=== PATIENT | male | born 1945 | race Two or more races ===

== ENCOUNTER 2023-04-10 06:00 | Day surgery (SDC) | payer OTHER ==
[~2023-04-10] VITALS: Ht 170.2 cm; Wt 63.5 kg
[~2023-04-10 06:00] MED LIST: LEVOTHYROXINE25 MCG PO
== END 2023-04-10 17:05 | disposition home or self-care (01) ==
LOC: CIR.AMB 06:00
PROVIDERS: ATTEND Colon & Rectal Surgery
DX: K64.2 Third degree hemorrhoids (principal); K64.8 Other hemorrhoids; K64.4 Residual hemorrhoidal skin tags; K92.2 Gastrointestinal hemorrhage, unspecified; I10 Essential (primary) hypertension; Z20.822 Contact with and (suspected) exposure to COVID-19

== ENCOUNTER 2023-05-04 20:43 | Inpatient (IN) | payer OTHER ==
[~2023-05-04] VITALS: Ht 170.2 cm; Wt 63.5 kg
[2023-05-04 22:43] LABS: CALCIUM 9.2 mg/dL (8.5-10.1); CREATININE SERUM 1.34 mg/dL (0.70-1.30); GFR 51.42; POTASSIUM 4.39 mEq/L (3.5-5.1)
[2023-05-04 22:44] LABS: INR 1.03; PROTHROMBIN TIME 10.8 SECONDS (9.0-11.5)
[2023-05-04 22:48] LABS: HEMATOCRIT 25.9 % (39.0-48.0); HEMOGLOBIN 8.6 g/dL (13-16.00); MEAN CELL VOLUME 91.7 fL (80.0-100.00); MEAN CORPUSCULAR HEMOGLOBIN 30.3 pg (27.00-32.0); MEAN CORPUSCULAR HGB CONC 33.1 g/dl (32.0-36.0); PLATELET COUNT 317 K/uL (150-450); RED BLOOD COUNT 2.83 M/uL (4.00-6.00); RED CELL DISTRIBUTION WIDTH 13.8 % (11.5-14.5)
[2023-05-04 23:13] LABS: URINE APPEARANCE Clear; URINE BILIRRUBIN Negative (NEGATIVE); URINE BLOOD Moderate; URINE COLOR Yellow; URINE GLUCOSE Negative (NEGATIVE); URINE LEUKOCYTE Negative; URINE NITRATE Negative; URINE PROTEIN Trace (NEGATIVE); URINE UROBILINOGEN 0.2 E.U./dl
[2023-05-04 23:16] LABS: URINE EPITHELIAL CELLS 1.5 uL (0.0-38.8); URINE RBC 67.5 uL (0.0-20.8)
[2023-05-06 08:18] LABS: HEMATOCRIT 24.5 % (39.0-48.0); MEAN CELL VOLUME 91.7 fL (80.0-100.00); PLATELET COUNT 315 K/uL (150-450); RED BLOOD COUNT 2.67 M/uL (4.00-6.00); RED CELL DISTRIBUTION WIDTH 13.5 % (11.5-14.5)
[2023-05-06 08:20] LABS: HEMOGLOBIN 8.3 g/dL (13-16.00)
[2023-05-06 08:40] LABS: ALBUMIN 3.2 gm/dL (3.4-5.0); CALCIUM 9.1 mg/dL (8.5-10.1); CREATININE SERUM 1.02 mg/dL (0.70-1.30); GFR 70.45; MAGNESIUM 1.9 mg/dL (1.8-2.4); PHOSPHOROUS 3.4 mg/dL (2.5-4.9); POTASSIUM 3.99 mEq/L (3.5-5.1)
[2023-05-07 06:27] LABS: MEAN CELL VOLUME 92.1 fL (80.0-100.00); MEAN CORPUSCULAR HGB CONC 33.9 g/dl (32.0-36.0); PLATELET COUNT 284 K/uL (150-450); RED CELL DISTRIBUTION WIDTH 13.3 % (11.5-14.5)
[2023-05-07 07:13] LABS: HEMATOCRIT 22.1 % (39.0-48.0); MEAN CORPUSCULAR HEMOGLOBIN 31.2 pg (27.00-32.0)
[2023-05-07 07:14] LABS: HEMOGLOBIN 7.5 g/dL (13-16.00)
[2023-05-08 11:37] LABS: HEMATOCRIT 31.1 % (39.0-48.0); HEMOGLOBIN 10.5 g/dL (13-16.00); MEAN CELL VOLUME 87.8 fL (80.0-100.00); MEAN CORPUSCULAR HEMOGLOBIN 29.6 pg (27.00-32.0); MEAN CORPUSCULAR HGB CONC 33.7 g/dl (32.0-36.0); PLATELET COUNT 312 K/uL (150-450); RED BLOOD COUNT 3.54 M/uL (4.00-6.00)
[2023-05-08] MEDS ORDERED: [UNRECOGNIZED DRUG - OTHER] PO (13:45)
== END 2023-05-08 18:26 | disposition home or self-care (01) | DRG 394 ==
LOC: ER 20:43 → SURH 05-05 14:47
PROVIDERS: Nurse Practitioner Family; Surgery; ADMIT Colon & Rectal Surgery; ATTEND Colon & Rectal Surgery
PROC: BW21ZZZ Computerized Tomography (CT Scan) of Abdomen and Pelvis (ICD-10-PCS; principal; 2023-05-04)
PROC: 30233N1 Transfusion of Nonautologous Red Blood Cells into Peripheral Vein, Percutaneous Approach (ICD-10-PCS; 2023-05-07)
DX: K62.89 Other specified diseases of anus and rectum (principal); K62.5 Hemorrhage of anus and rectum